=== PATIENT | male | born 1985 | race American Indian/Alaskan Native ===

== ENCOUNTER 2017-01-30 16:12 | Emergency (ER) | payer MEDICAID, OTHER ==
[2017-01-30 16:22] VITALS: BP 128/84
[2017-01-30] MEDS ORDERED: Acetaminophen/HYDROcodone 325-5 MG Tab PO ONE (17:09)
[2017-01-30] MEDS ORDERED: Cyclobenzaprine 10 MG Tab PO ONE (17:09)
[2017-01-30] MEDS ORDERED: Ketorolac 60 MG/2 ML SDV IM ONE (17:09)
--- NOTE | 2017-01-30 17:14 | EDM.PDOC ---
ED HPI GENERAL MEDICAL PROBLEM - General Chief Complaint: Back Pain or Injury Stated Complaint: BACK INJURY Time Seen by Provider: 01/30/17 16:36 Source of Information: Reports: Patient History Limitations: Reports: No Limitations - History of Present Illness INITIAL COMMENTS - FREE TEXT/NARRATIVE: Patient is a 31-year-old male presents ED complaining of low back pain. States while repairing a P-trap underneath the sink patient was on his knees arching his back with his head looking upward and experienced a spasming sensation to his low back. Patient layed down with low back muscles massaged. He had difficulty getting back up secondary to pain. With assistance he was able to get up but felt a pop to his low back. States he's had some intermittent pain down his legs radiating from his back. He presents to the ED with no such symptoms. Pain is localized described as a spasming sensation. He has no saddle anesthesia or incontinence to urine or stool. There is no numbness to his lower extremities. No difficulty with walking. He has not taken any medications prior to coming to the ED for pain. He has no documented abnormalities to his back. Lower Back Pain Score (Numeric/FACES): 6 - Related Data Allergies Allergy/AdvReac Type Severity Reaction Status Date / Time No Known Allergies Allergy Verified 01/30/17 16:22 Home Meds: Home Meds Cyclobenzaprine [Flexeril] 5 mg PO TID PRN #15 tablet 01/30/17 [Rx] Past Medical History - Past Health History Medical/Surgical History: Denies Medical/Surgical History Social & Family History - Family History Family Medical History: Noncontributory - Tobacco Use Smoking Status *Q: Current Every Day Smoker Years of Tobacco use: 15 Packs/Tins Daily: 1 - Caffeine Use Caffeine Use: Reports: Coffee, Soda - Recreational Drug Use Recreational Drug Use: No Recreational Drug Type: Reports: Marijuana/Hashish ED ROS GENERAL - Review of Systems Review Of Systems: ROS reveals no pertinent complaints other than HPI. ED EXAM,LOWER BACK PAIN/INJURY - Physical Exam Exam: See Below Exam Limited By: No Limitations General Appearance: Alert, WD/WN, No Apparent Distress Ears: Hearing Grossly Normal Nose: Normal Inspection Throat/Mouth: Normal Voice, No Airway Compromise Neck: Normal Inspection, Supple Respiratory/Chest: No Respiratory Distress, Lungs Clear, Normal Breath Sounds, No Accessory Muscle Use, Chest Non-Tender Cardiovascular: Normal Peripheral Pulses, Regular Rate, Rhythm GI/Abdominal: Normal Bowel Sounds, Soft, Non-Tender Back Exam: Normal Inspection, Paraspinal Tenderness (Left side along [id number]). No : Vertebral Tenderness Extremities: Normal Inspection, Normal Range of Motion, Non-Tender, No Pedal Edema, Normal Capillary Refill Neurological: Alert, Normal Mood/Affect, Normal Dorsiflexion, CN II-XII Intact, Normal Plantar Flexion, No Motor/Sensory Deficits, Oriented x 3. No: Straight Leg Raise (L), Straight Leg Raise (R) Psychiatric: Normal Affect, Normal Mood Skin Exam: Warm, Dry, Intact, Normal Color Course - Vital Signs Last Recorded V/S: Last Vital Signs Temp 97.7 F 01/30/17 16:19 Pulse 64 01/30/17 16:19 Resp 18 01/30/17 16:19 BP 128/84 01/30/17 16:19 Pulse Ox 98 01/30/17 16:19 - Orders/Labs/Meds Meds: Medications Discontinued Medications Generic Name Dose Route Start Last Admin Trade Name Joe PRN Reason Stop Dose Admin Hydrocodone Bitart/Acetaminophen 1 tab 01/30/17 17:09 01/30/17 17:25 Harvey 325-5 Mg PO 01/30/17 17:10 1 tab ONETIME ONE Administration Cyclobenzaprine HCl 10 mg 01/30/17 17:09 01/30/17 17:25 Flexeril PO 01/30/17 17:10 10 mg ONETIME ONE Administration Ketorolac Tromethamine 60 mg 01/30/17 17:09 01/30/17 17:25 Toradol IM 01/30/17 17:10 60 mg ONETIME ONE Administration - Re-Assessments/Exams Free Text/Narrative Re-Assessment/Exam: Patient has a pain on examination to the paraspinal muscles on the left side of his back. No bony abnormalities noted. No sensory motor deficits noted. Straight leg test were negative. Ordered Harvey one tab by mouth, Flexeril 1 tab by mouth, and Toradol 60 mg IM. Etiology current complaint is a low back muscle strain. 01/30/17 17:45 Patient's symptoms have improved. Will discharge patient home with instructions as documented. Departure - Departure Time of Disposition: 17:13 Disposition: Home, Self-Care 01 Condition: Good Clinical Impression: Muscle strain Low back pain with bilateral sciatica Qualifiers: Chronicity: acute Back pain laterality: left Qualified Code(s): M54.42 - Lumbago with sciatica, left side Low back pain Qualifiers: Chronicity: acute Back pain laterality: left Sciatica presence: without sciatica Qualified Code(s): M54.5 - Low back pain - Discharge Information Prescriptions: Cyclobenzaprine [Flexeril] 5 mg PO TID PRN #15 tablet PRN Reason: Spasms Instructions: Muscle Strain, [id number], Back Pain, Adult, [id number], Back Injury Prevention, [id number], Pain Medicine Instructions, [id number] Referrals: PCP,None [Primary Care Provider] - Forms: ED Department Discharge Additional Instructions: Refrain from any activities that cause worsening pain. Take the Flexeril as prescribed. No driving this evening nor while taking the Flexeril. Utilize ibuprofen 600 mg every 6 hours and Tylenol 650 mg every 6 hours in alternating fashion for pain. Apply warm compresses and/or cold compresses to the affected area as needed. Follow-up with PCP in the next week to ensure resolution. If symptoms are not improving MRI of the back may require. Return to ED for any new or worsening symptoms.
== END 2017-01-30 18:05 | disposition home or self-care (01) ==
LOC: JD.ED 16:12
DX: S39.012A Strain of muscle, fascia and tendon of lower back, initial encounter (principal); M54.42 Lumbago with sciatica, left side; F17.210 Nicotine dependence, cigarettes, uncomplicated; X58.XXXA Exposure to other specified factors, initial encounter
CPT/HCPCS: 96372; 99283; A9270; J1885

== ENCOUNTER 2023-02-10 13:39 | Emergency (ER) | payer MEDICAID, OTHER ==
[2023-02-10] MEDS ORDERED: HYDROmorphone 1 MG/ML Syringe IM ONE (14:34)
[2023-02-10] MEDS ORDERED: Promethazine 25 MG/ML SDV IM ONE (14:35)
[2023-02-10 18:16] VITALS: BP 139/90; PULSE 65
== END 2023-02-10 15:13 | disposition home or self-care (01) ==
LOC: JD.ED 13:39
DX: M54.50 Low back pain, unspecified (principal)
CPT/HCPCS: 96372; 99283; J1170; J2550

== ENCOUNTER 2024-12-28 20:14 | Emergency (ER) | payer MEDICAID, OTHER ==
[2024-12-28 20:30] VITALS: PULSE 80
[2024-12-28 20:36] LABS: BASOPHILS ABSOLUTE AUTO 0.0 K/mm3 (0.0-0.2); BASOPHILS PERCENT AUTO 0.2 % (0.0-1.0); EOSINOPHILS ABSOLUTE AUTO 0.1 K/mm3 (0.0-0.4); EOSINOPHILS PERCENT AUTO 0.9 % (0.0-6.0); IMMATURE GRAN ABSOLUTE AUTO 0.03 K/mm3 (0.00-0.05); IMMATURE GRAN PERCENT AUTO 0.3 % (0.0-0.4); LYMPHOCYTES ABSOLUTE AUTO 1.8 K/mm3 (1.0-4.8); LYMPHOCYTES PERCENT AUTO 20.0 % (24.0-44.0); MEAN PLATELET VOLUME 9.9 fl (9.4-12.4); MONOCYTES ABSOLUTE AUTO 0.5 K/mm3 (0.0-0.8); MONOCYTES PERCENT AUTO 5.7 % (0.0-8.0); NEUTROPHILS ABSOLUTE AUTO 6.4 K/mm3 (1.8-7.7); NEUTROPHILS PERCENT AUTO 72.9 % (41.0-71.0); NRBC ABSOLUTE 0.00 (0.00-0.02); NRBC PERCENT 0.0 % (0.0-0.2); PLATELET COUNT,PLT 236 K/mm3 (150-400); RED BLOOD CELL COUNT 4.56 M/mm3 (4.52-5.90); WHITE BLOOD CELL COUNT,WBC 8.83 K/mm3 (3.9-11.3)
[2024-12-28] MEDS ORDERED: Sodium Chloride 0.9% 10 ML Syringe FLUSH PRN (20:38)
[2024-12-28] MEDS: Sodium Chloride 0.9% 10 ML Syringe FLUSH PRN (20:50)
[2024-12-28] MEDS: Iopamidol 612 MG/ML 100 ML Bottle IVPUSH ONE (20:50)
[2024-12-28 20:55] LABS: LACTIC ACID 1.4 mmol/L (0.4-2.0)
[2024-12-28 21:02] LABS: A/G RATIO 1.0 (1-2); ALANINE AMINOTRANSFERASE,ALT 25.0 U/L (16-63); ASPARTATE AMNIOTRANSFERASE,AST 18.0 U/L (15-37); BILIRUBIN TOTAL 0.2 mg/dL (0.2-1.0); BLOOD UREA NITROGEN,BUN 12.0 mg/dL (7-18); CARBON DIOXIDE,CO2 24.0 mEq/L (21-32); CHLORIDE,CL 105.0 mEq/L (98-107); CREATININE 0.8 mg/dL (0.7-1.3); EST CRCL DRUG DOSING (CG) 141.28 mL/min; ESTIMATED GFR 114.0 mL/min (>60); GLUCOSE RANDOM 99.0 mg/dL (70-99); POTASSIUM,K 3.3 mEq/L (3.5-5.1); PROTEIN TOTAL,TP 7.0 g/dl (6.4-8.2); SODIUM,NA 138.0 mEq/L (136-145)
[2024-12-28 21:28] LABS: APPEARANCE,URINE CLEAR (Clear); GLUCOSE,URINE NEGATIVE (Negative); OCCULT BLOOD,URINE NEGATIVE (Negative)
[2024-12-28] MEDS: Ketorolac 30 MG/ML SDV IVPUSH ONE (21:32)
[2024-12-28 23:15] VITALS: BP 121/80
== END 2024-12-28 22:30 | disposition home or self-care (01) ==
LOC: JD.ED 20:14
DX: K40.90 Unilateral inguinal hernia, without obstruction or gangrene, not specified as recurrent (principal); R79.89 Other specified abnormal findings of blood chemistry
CPT/HCPCS: 36415; 74177; 80053; 81003; 83605; 83690; 85025; 86140; 96361; 96374; 99284; J1885; J7030; Q9967